=== PATIENT | male | born 1950 | race Caucasian/White ===

== ENCOUNTER → 2016-10-18 | Outpatient (CLI) | payer OTHER ==
--- NOTE | 2016-10-18 11:30 | CT ---
Unenhanced CT Scan of the Right Lower Extremity (Pre-MAKOplasty Knee Protocol) Clinical History: 66-year-old male with right knee osteoarthritis, anticipating a surgical MAKOplasty . ICD-10 Diagnostic Code: M17.9. Technique: A multidetector unenhanced helical CT scan was obtained from the right hip caudally throug h the right ankle, reformatted at 2.50 mm increments through the right hip, 0.63 mm increments from t he right mid-femoral through mid-tibial diaphyses, and then 2.50 mm increments at the level of the ri ght ankle. Images are reviewed in soft tissue and bone windows, and parasagittal and paracoronal dorian nstructed images through the right knee are provided. The DFOV is 32.0 cm. Dose reduction protocol wa s used. Comparison Study: None available. Findings: Unenhanced CT Scan of the Right Hip: There is some mild osseous hypertrophy along the acetabular sky in with mild right femoral-acetabular joint space narrowing. There is no marginal erosion. Incidental note is made of some sigmoid colon diverticula and osseous fusion of the symphysis pubis. The marionette performer topogram demonstrates asymmetric right L5-S1 degenerative osteoarthrosis. Unenhanced CT Scan of the Right Knee: There are degenerative osteoarthritic features associated with the knee, with lateral femoral and tibial degenerative spur formation and some degenerative pinnaclin g of the tibial spines. There is a moderate degree of medial femoral-tibial compartment narrowing wit h some subchondral sclerosis. There is a mild degree of patellofemoral joint space narrowing, with no subluxation or tilting. There is a small suprapatellar joint effusion present, with fluid tracking e ccentric-medially. There is no Reis cyst seen at the level of the popliteal fossa. Subchondral sy nal erosion is seen along the posterior portions of the proximal medial tibia. There is no loose oste ochondral body or chondrocalcinosis. Unenhanced CT Scan of the Right Ankle: There is no acute or subacute osseous abnormality. Impression: Degenerative osteoarthrosis of the right knee, most pronounced at the level of the medial femoral-tibial compartment.
== END ==
LOC: FIMAGING 10:18
PROVIDERS: ATTEND Orthopaedic Surgery
DX: M17.11 Unilateral primary osteoarthritis, right knee (principal)

== ENCOUNTER 2016-10-26 05:59 | Observation (INO) | payer OTHER ==
[2016-10-21 12:45] LABS: % IMMATURE GRANULYOCYTES 0.2 % (0.0-1.1); ABSOLUTE IMMATURE GRANULOCYTES 0.01 10^3/uL (0.00-0.10); ADD DIFF? NO; ADD MORPH? NO; ADD SCAN? NO; ATYPICAL LYMPHOCYTE FLAG 10 (0-99); FRAGMENT RBC FLAG 0 (0-99); HEMATOCRIT 49.8 % (40.0-51.0); HEMOGLOBIN 16.3 g/dL (13.7-17.5); LEFT SHIFT FLG 0 (0-99); LIPEMIA HEMOLYSIS FLAG 80 (0-99); MEAN CELL HEMOGLOBIN 29.9 pg (27.9-34.1); MEAN CELL HEMOGLOBIN CONCENTR. 32.7 g/dL (32.4-36.7); MEAN CELL VOLUME 91.2 fL (81.5-99.8); MEAN PLATELET VOLUME 9.5 fL (8.7-11.7); PLATELET CLUMPS FLAG 0 (0-99); PLATELET COUNT 228 10^3/uL (150-400); RED BLOOD CELL COUNT 5.46 10^6/uL (4.40-6.38); RED CELL DISTRIBUTION WIDTH 12.4 % (11.5-15.2)
[2016-10-26] MEDS ORDERED: ACETAMINOPHEN 325 MG TAB PO ONE (06:00)
[2016-10-26] MEDS ORDERED: CHLORHEXIDINE GLUC HIBICLENS 118 ML BTL TP ONE (06:00)
[2016-10-26] MEDS ORDERED: ROPI/epiNEPH/KETOROLAC JOINT COCKTAIL IU ONE (06:00)
[2016-10-26] MEDS ORDERED: DEXAMETHASONE 4 MG/ML VIAL IVP ONE (06:00)
[2016-10-26] MEDS ORDERED: TRANEXAMIC ACID 3,000 MG in NS 50 ML IRR ONE (06:00)
[2016-10-26] MEDS ORDERED: FAMOTIDINE 20 MG TAB PO ONE (06:00)
[2016-10-26] MEDS ORDERED: VANCOMYCIN 1.25 GM in D5W 250 ML IV ONE ×2 (06:00→19:30)
[2016-10-26] MEDS ORDERED: LIDOCAINE 1% 5 ML SDV ONE (06:09)
[2016-10-26] MEDS ORDERED: LR 1,000 ML IV ONE (06:32)
[2016-10-26] MEDS ORDERED: LIDOCAINE 1% 5 ML SDV ID PRN (06:32)
[2016-10-26] MEDS ORDERED: SKIN ADHESIVE (DERMABOND) 1 EACH TP ONE (06:36)
[2016-10-26] MEDS ORDERED: TRANEXAMIC ACID 3,000 MG/50 ML BAG IRR ONE (06:36)
[2016-10-26] MEDS ORDERED: VANCOMYCIN 1 GM VIAL IV ONE (06:37)
[2016-10-26] MEDS ORDERED: MIDAZOLAM 2 MG/2 ML VIAL ONE (06:57)
[2016-10-26] MEDS ORDERED: PROPOFOL/EMULSION 500 MG/50 ML BOTTLE IV ONE (07:02)
[2016-10-26] MEDS ORDERED: LIDOCAINE 2% 100 MG/5 ML SYR IVP ONE (07:02)
[2016-10-26] MEDS ORDERED: ROPIVACAINE HCL 150 MG/30 ML INJ ONE (07:54)
[2016-10-26] MEDS ORDERED: MAGNESIUM HYDROXIDE 30 ML UDCUP PO PRN (08:36)
[2016-10-26] MEDS ORDERED: ONDANSETRON 4 MG/2 ML VIAL IVP PRN (08:36)
[2016-10-26] MEDS ORDERED: BISACODYL 10 MG SUPP PR PRN (08:36)
[2016-10-26] MEDS ORDERED: PROMETHAZINE HCL 25 MG SUPPR PR PRN (08:36)
[2016-10-26] MEDS ORDERED: POLYETHYLENE GLYCOL 3350 17 GM PKT PO PRN (08:36)
[2016-10-26] MEDS ORDERED: PHARMACY PAIN CONSULT 1 EA MISC PRN (08:36)
[2016-10-26] MEDS ORDERED: LACTULOSE 20 GM/30 ML UDCUP PO PRN (08:36)
[2016-10-26] MEDS ORDERED: oxyCODONE IR 5 MG TAB PO PRN (08:36)
[2016-10-26] MEDS ORDERED: CYCLOBENZAPRINE 10 MG TAB PO PRN (08:36)
[2016-10-26] MEDS ORDERED: diphenhydrAMINE 25 MG CAP PO PRN (08:36)
[2016-10-26] MEDS ORDERED: ONDANSETRON DISINTEGRATING 4 MG TAB PO PRN (08:36)
[2016-10-26] MEDS ORDERED: TEMAZEPAM 15 MG CAP PO PRN (08:36)
[2016-10-26] MEDS ORDERED: PROMETHAZINE HCL 25 MG/ML VIAL IVP PRN (08:36)
[2016-10-26] MEDS ORDERED: DIPHENOXYLATE/ATROPINE LOMOTIL 1 TAB PO PRN (08:36)
[2016-10-26] MEDS ORDERED: METOCLOPRAMIDE 10 MG/2 ML VIAL IVP PRN (08:36)
--- NOTE | 2016-10-26 08:36 | POSTOPPROG ---
Post Op Note Date of Operation: 10/26/16 Surgeon: Supriya Muniz Inverter And Clipper: edvin muniz Anesthesiologist: dr. galicia Anesthesia: Spinal, Other (Specify) (adductor canal block) Pre-op Diagnosis: right knee OA Post-op Diagnosis: same Indication: right knee pain due to OA that failed conservative measures Procedure: R medial MPL robot assisted Findings: severe medial knee OA Inf/Abcess present in the surg proc area at time of surgery?: No EBL: 50-100
[2016-10-26] MEDS ORDERED: LR 1,000 ML IV SCH (09:00)
--- NOTE | 2016-10-26 09:38 | DX ---
Right Knee, AP and [place] Lateral Views October 26, 2016 9:17 a.m. Clinical History: 66-year-old male in the PACU after a knee arthroplasty. Comparison Study: CT scan of the right knee, dated October 18, 2016. Findings: In the interim, the patient has undergone a medial femoral-tibial compartment hemiarthropla sty (MAKOplasty), with anatomic alignment. There is degenerative pinnacling of the tibial spines and lateral femoral and tibial degenerative osteophyte formation. There are ghosting artifacts from previ ously placed and subsequently removed orthopedic hardware in the femoral and tibial diaphyses. A pneu matic cuff is present over the calf. There is normally expected postoperative air in the suprapatella r and infrapatellar bursae. Impression: Status post medial femoral-tibial compartment hemiarthroplasty, with anatomic alignment.
[2016-10-26] MEDS: SENNOSIDES/DOCUSATE SODIUM TAB PO SCH ×2 (10:11→19:57)
[2016-10-26] MEDS: ACETAMINOPHEN 325 MG TAB PO SCH ×2 (11:35→17:47)
[2016-10-26] MEDS: ASPIRIN 325 MG TAB PO SCH (19:57)
[2016-10-26] MEDS: FAMOTIDINE 20 MG TAB PO SCH (19:58)
[2016-10-27] MEDS: ACETAMINOPHEN 325 MG TAB PO SCH ×2 (00:09→05:15)
[2016-10-27 06:08] LABS: HEMOGLOBIN 13.7 g/dL (13.7-17.5)
[2016-10-27 07:55] VITALS: BP 157/93; PULSE 63; RESP 17; TEMP 97.5; O2SAT 92
[2016-10-27] MEDS: SENNOSIDES/DOCUSATE SODIUM TAB PO SCH (07:57)
[2016-10-27] MEDS: FAMOTIDINE 20 MG TAB PO SCH (07:57)
[2016-10-27] MEDS: ASPIRIN 325 MG TAB PO SCH (07:57)
[2016-10-27] MEDS ORDERED: NON-FORMULARY NEW DRUG (Esomeprazole Magnesium [Nexium] 20 MG) PO SCH (09:00)
[2016-10-27] MEDS ORDERED: PRAVASTATIN SODIUM 10 MG TAB PO SCH (09:00)
[2016-10-27] MEDS ORDERED: LOVASTATIN 10 MG PO SCH (09:00)
[2016-10-27] MEDS ORDERED: PANTOPRAZOLE SODIUM 40 MG TAB PO SCH (09:00)
[2016-10-27] MEDS ORDERED: PNEUMOC 13-VAL CONJ-DIP CRM/PF 0.5 ML SYR IM ONE (10:25)
--- NOTE | 2016-10-27 12:42 | SOAPPROG ---
SOAP Progress Note Assessment/Plan: Assessment: Tristian is doing well POD 1 s/p R med MPL surgery 1. pain management: well controlled on oral pain meds 2. VTE PPX: recommend aspirin daily, ITZEL peng and SCDs 3. D/c planning: recommend D/c to home pending release from PT. Plan: 10/27/16 12:39 10/27/16 12:46 Subjective: Tristian is doing well today, denies SOB, chest pain and N/v. Objective: Vital Signs Temp Pulse Resp BP Pulse Ox 36.4 C 63 17 157/93 H 92 10/27/16 07:52 10/27/16 07:52 10/27/16 07:52 10/27/16 07:52 10/27/16 07:52 Laboratory Results 10/27/16 04:44 10/26/16 10/27/16 10/28/16 05:59 05:59 05:59 Intake Total 2846 Output Total 1275 Balance 1571 RLE: incision dressing is clean and dry, NVI, +pf/df ICD10 Worksheet Patient Problems: Problems Problem Status Diagnosed Primary localized osteoarthritis of right knee Acute
--- NOTE | 2016-10-28 15:39 | GOP ---
[f rep st] OPERATIVE REPORT DATE OF OPERATION: 10/26/2016 SURGEON: Zoe Adams MD SETTLEMENT WORKER: Sakina Adams PA-C ANESTHESIA: Spinal. PREOPERATIVE DIAGNOSIS: Right knee osteoarthritis. POSTOPERATIVE DIAGNOSIS: Right knee osteoarthritis. PROCEDURE PERFORMED: Right medial compartment partial knee replacement with computer navigation and robotic assist. FINDINGS: PATHOLOGY: Severe medial OA INDICATIONS: This is a 66-year old male with progressive pain of the right knee unresponsive to conservative care. Risks and benefits of surgical intervention were explained in detail. DESCRIPTION OF PROCEDURE: The patient was brought to the operating room and placed on the table in supine position. Spinal anesthesia was induced without difficulty. A pneumatic tourniquet was applied about the right proximal thigh and the leg was prepped and draped in sterile fashion. Attention was turned first to the distal aspect of the right femur. At 3 cm proximal to the lateral rise of the femur, 2 percutaneous half pins were placed for fixation of the femoral array. In a similar fashion, 2 pins were placed anterolateral on the tibia for fixation of the tibial array. External land marking and registration of the hip center was performed without difficulty. After exsanguination by elevation, the tourniquet was inflated to 250 mmHg. Incision was made from the tibial tuberosity to the superior pole of the patella. Dissection was carried out through the subcutaneous tissue to the deep fascia using Bovie electrocautery for hemostasis. Medial parapatellar arthrotomy was carried out to the superior pole of the patella. The medial collateral ligament was elevated and the infrapatellar fat pad was resected. Internal femoral and tibial registration was carried out without difficulty and the femoral and tibial checkpoints were placed and verified for accuracy. Attention was turned to the femur. The foot print for the size 5 femoral component was cut with the 6 mm bur using the [employer] robotic system and verified for accuracy against the CT based plan. The hole was cut for the femoral post. In a similar fashion, the 6 mm bur was used to cut the foot print for the size 5 tibial component using the [employer] system and verified for accuracy against the CT based plan. Attention was turned to the posterior aspect of the knee and remnants of the medial meniscus were excised. The posterior capsule was injected with ropivacaine, epinephrine and Toradol. Trial reduction was carried out and there was excellent range of motion, alignment and stability using the size 5 femoral component and the size 5 tibial component, 5 x 9 mm polyethylene. All trials were then removed. The joint was thoroughly irrigated and carefully dried. One package of cement and 1 gram of vancomycin were mixed in the vacuum mixer and placed on the fixation surfaces of all components. The components were implanted and all excess cement was thoroughly removed. Implant placement was verified against the CT view plan and found to be excellent. The tourniquet was deflated and all bleeders were coagulated. The wound was thoroughly irrigated and closed using interrupted sutures of 2-0 Vicryl for the joint capsule. The subcu was closed with 3-0 Vicryl and the skin with 4-0 Monocryl. Dermabond and Steri-Strips were applied, followed by a compressive dressing. The patient was then moved from the operating room to the recovery room in good condition, having tolerated the procedure well. CASE CLASSIFICATION: Clean. /[id number]/MODL MTDD
== END 2016-10-27 10:54 | disposition home or self-care (01) ==
LOC: INTOOBSV 05:59 → F3N 05:59
PROVIDERS: ADMIT Orthopaedic Surgery; ATTEND Orthopaedic Surgery
PROC: 8E0Y0CZ Robotic Assisted Procedure of Lower Extremity, Open Approach (ICD-10-PCS; principal; 2016-10-26 07:15)
PROC: 0SRC0L9 Replacement of Right Knee Joint with Medial Unicondylar Synthetic Substitute, Cemented, Open Approach (ICD-10-PCS; principal; 2016-10-26 07:15)
DX: M17.11 Unilateral primary osteoarthritis, right knee (principal)
CPT/HCPCS: 27446; 73560; 97110; 97116; 97161; 97165; C1713; C1776; G8978; G8979; G8980; G8987; G8988; G8989; J0171; J1100; J1885; J2001; J2250; J2704; J2795; J3370